=== PATIENT | male | born 1980 ===

== ENCOUNTER 2020-08-06 12:44 | Emergency (ER) | payer OTHER ==
[~2020-08-06] VITALS: Ht 162.6 cm; Wt 63.5 kg
== END 2020-08-06 15:51 | disposition home or self-care (01) ==
LOC: ER 12:44
DX: S33.5XXA Sprain of ligaments of lumbar spine, initial encounter (principal); X50.9XXA Other and unspecified overexertion or strenuous movements or postures, initial encounter; Y93.89 Activity, other specified; Y92.89 Other specified places as the place of occurrence of the external cause; Y99.8 Other external cause status